=== PATIENT | female | born 1990 | race Caucasian/White ===

== ENCOUNTER 2016-08-25 11:41 | Emergency (ER) | payer OTHER, MEDICAID ==
--- NOTE | 2016-08-26 11:08 | ER ---
ADMIT: 08/25/2016 RM/LOC: ER [facility] MR#: [id number] [id number] [facility] [address] [place] [phone] RASHEEDA ROWLEY [address] [place] [address] Emergency Room Report SEX: F AGE: 26 : 1990 DATE: 08/25/2016 ADDENDUM: A 26-year-old white female coming in with flank pain, this is on the right. She has had stones, 3-4. She has 13 mm stone at the [facility]. At this time, I spoke with Dr. Mohan, they are going to see her in the clinic tomorrow. Her pain is under control. She is not infected. The last time she had one something like this, they ended up having to do as well procedure. CONDITION ON DISCHARGE: Good. Olivier Jackman MD/ pancho JOB #: [id number] CC: Olivier Jackman MD, Attending Physician Hilda Mohan MD, Family Physician
== END 2016-08-25 14:50 | disposition home or self-care (01) ==
LOC: ER 11:41
DX: N13.2 Hydronephrosis with renal and ureteral calculous obstruction (principal); Z88.5 Allergy status to narcotic agent

== ENCOUNTER 2016-08-26 09:01 | Day surgery (SDC) | payer OTHER, MEDICAID ==
[~2016-08-26] VITALS: Ht 157.5 cm; Wt 73.0 kg
--- NOTE | 2016-08-29 13:09 | NUR ---
Received SAD person referral. Spoke with pt. States she tried to harm self 5-6 years ago and was taken to [facility]. She was on medication and had counseling after [facility]. Pt states she is doing well. Denies thoughts of self harm and denies a plan to harm self.
--- NOTE | 2016-09-06 10:12 | OR ---
ADMIT: 08/26/2016 RM/LOC: [facility] MR#: [id number] [id number] [facility] [address] [place] [phone] RASHEEDA ROWLEY [address] [place], [place] [id number] Operative/Delivery Room Report SEX: F AGE: 26 : 1990 SURGERY DATE: 08/26/2016 SURGEON: Medhat Mohan MD PREOPERATIVE DIAGNOSIS: Obstructing right ureteral calculus. POSTOPERATIVE DIAGNOSES: 1. Obstructing right ureteral calculus. 2. Right hydronephrosis. 3. Normal cystoscopy. PROCEDURE: Cystoscopy with right retrograde pyelogram, right ureteral stent placement. ANESTHESIA: General. SPECIMEN: Urine culture. BRIEF HISTORY: The patient is a pleasant white female with history of stone disease, recent approximately two months ago. The patient presents with an obstructing right proximal ureteral calculus. Just not feeling well, presents today for intervention. Risks and benefits have been discussed, preoperative antibiotics given. Preoperative labs evaluated and unremarkable. DESCRIPTION OF PROCEDURE: The patient was taken to OR #5, placed on the table in supine position. After adequate anesthesia, transferred to dorsal lithotomy position, prepped and draped in the usual fashion. A time-out was taken to confirm the patient's name, date of , planned procedure, preoperative antibiotics, and allergies. A 22-Japanese cystoscope with 30-degree lens was advanced to the level of bladder. The urethra was unremarkable. The ureteral orifice was visualized, in normal position and configuration. The bladder mucosa otherwise pink without suspicious erythema or papillary lesion. A cone-tipped catheter was passed with full strength contrast and active fluoroscopy, a retrograde pyelogram was performed which outlined a normally distensible ureter. On pre- injection images, the stone was easily visualized. Contrast essentially stops right distal to the stone. It looks to be right in the proximal ureter/ureteropelvic junction. I did pass an angle-tipped Glidewire, some resistance initially at the stone but then the stone popped back into the renal pelvis. We had brisk efflux of a cloudy urine from the upper tracts. I did collect this and sent for culture. She did have a culture yesterday, which was unremarkable. Given the appearance of the urine, I did go ahead and elect to just simply place a stent to decompress this collecting system in the setting of possible infection. Over the indwelling guidewire, I passed a 5- Japanese glide cath, did remove the guidewire, had a return of slightly cloudy urine. I did inject some contrast confirming position within the collecting system. At this point, I replaced the guidewire. The ureteral access catheter was removed. Under direct fluoroscopic visualization, a 6-Japanese 24 ADMIT: 08/26/2016 RM/LOC: [facility] MR#: [id number] [id number] [place] [phone] RASHEEDA ROWLEY [address] [place] [address] Operative/Delivery Room Report SEX: F AGE: 26 : 1990 cm double pigtail stent was placed. With the removal of guidewire, we had a nice curl within the renal pelvis and nice curl within the urinary bladder. Brisk efflux of contrast in urine from the drainage ports within the bladder. The bladder was decompressed, the scope withdrawn. The patient was taken out of the dorsal lithotomy position. She was extubated uneventfully and transferred to recovery room in stable condition. DISPOSITION: The patient will be discharged home later on today. DISCHARGE MEDICATIONS: 1. Cipro 500 mg one p.o. b.i.d. for 10 days. 2. Lortab 5/325, one to two every 4-6 hours as needed for pain. 3. Pyridium 200 mg one p.o. t.i.d. p.r.n. dispense #20. FOLLOWUP: I will have the patient back in 7 to 10 days for a followup urinalysis, KUB, and discussion of further treatment planning. We can entertain the possibility of extracorporeal shockwave lithotripsy versus ureteroscopy. Medhat Mohan MD/ pancho JOB #: [id number] CC: Medhat Mohan, Attending Physician FAMILY PHYSICIAN, Family Physician
== END 2016-08-26 15:25 | disposition home or self-care (01) ==
LOC: SSS 09:01
PROC: 0T768DZ Dilation of Right Ureter with Intraluminal Device, Via Natural or Artificial Opening Endoscopic (ICD-10-PCS; principal; 2016-08-26)
PROC: BT1DYZZ Fluoroscopy of Right Kidney, Ureter and Bladder using Other Contrast (ICD-10-PCS; principal; 2016-08-26)
DX: N13.2 Hydronephrosis with renal and ureteral calculous obstruction (principal); Z79.899 Other long term (current) drug therapy; Z88.6 Allergy status to analgesic agent; Z87.81 Personal history of (healed) traumatic fracture